=== PATIENT | female | born 1955 ===

== ENCOUNTER 2018-07-24 06:50 | Day surgery (SDC) | payer OTHER ==
[2018-07-24] MEDS ORDERED: Propofol 10 mg/ml Inj (20 ML) ONE (08:19)
[2018-07-24] MEDS ORDERED: Lidocaine Hydrochloride 5 ML INJ ONE (08:19)
--- NOTE | 2018-07-24 08:26 | CP.SDSHP ---
Same Day Surgery H & P - History Proposed Procedure: colonoscopy Pre-Op Diagnosis: rectal bleeding - Previous Medical/Surgical History Cardiac: Other (hyperllipidemia, ) Misc: Other (H pylori gastirits) Previous Surgical History: Ectopic . T & A - Allergies Allergies: Allergies NASTIZOL Allergy (Uncoded 07/24/18 07:24) SHORTNESS OF BREATH powder Allergy (Uncoded 07/24/18 07:16) COUGH - Physical Exam Vital Signs: Vital Signs 07/24/18 07/24/18 07:18 08:22 Temperature 98.4 F 98.4 F Pulse Rate 78 58 L Respiratory 19 19 Rate Blood Pressure 130/73 129/57 L O2 Sat by Pulse 98 100 Oximetry Mental Status: Alert & Oriented x3 Neuro: WNL Heart: WNL Lungs: WNL GI: WNL - Impression Impression: rectal bleeding Pt. Evaluated Today:Candidate for Anesthesia & Procedure: Yes - Date & Time Date: 07/24/18 Time: 08:26 Short Stay Discharge - Short Stay Discharge Admitting Diagnosis/Reason for Visit: ENCOUNTER SCREENING Disposition: HOME/ ROUTINE
[2018-07-24 09:10] VITALS: TEMP 97.5
[2018-07-24 09:28] VITALS: PULSE 65
[2018-07-24 09:53] VITALS: BP 126/57; RESP 17; O2SAT 100
== END 2018-07-24 10:39 | disposition home or self-care (01) ==
LOC: C.ENDO 06:50
PROVIDERS: ATTEND Internal Medicine Gastroenterology
DX: Z12.11 Encounter for screening for malignant neoplasm of colon (principal); D12.0 Benign neoplasm of cecum; D12.7 Benign neoplasm of rectosigmoid junction; K57.90 Diverticulosis of intestine, part unspecified, without perforation or abscess without bleeding; K64.8 Other hemorrhoids
CPT/HCPCS: 45380; 87338; 88305; J2704